=== PATIENT | male | born 1985 | race Caucasian/White ===

== ENCOUNTER 2025-03-08 16:16 | Emergency (ER) | payer BC, SELFPAY ==
[2025-03-08 16:19] VITALS: BP 161/96
[2025-03-08 16:45] VITALS: BP 141/83
[2025-03-08 16:47] LABS: Hematocrit 45.1 % (39.0-52.0); Hemoglobin 15.5 g/dL (13.0-18.0); Mean Corp Hgb Conc. 34.4 g/dL (33.0-37.0); Mean Corpuscular Volume 89.5 fL (80.0-94.0); Nucleated Red Blood Cells % 0 % (-); Platelet Count 238 10^3/uL (130-400); Red Cell Dist. Width 12.6 % (11.5-14.5)
[2025-03-08 16:48] VITALS: BP 141/83; BMI 25.8
--- NOTE | 2025-03-08 16:51 | ED.GENMED ---
History of Present Illness
General
Chief Complaint: Chest Pain
Source: patient
Exam Limitations: none
Time Seen by Provider: 03/08/25 16:50
Nursing documentation reviewed up to this point in time: agreed with
History of Present Illness
History of Present Illness:
40-year-old male with history of HTN presents for chest pain, dizziness, shortness of breath. States he worked out, then ate lunch at 12:45 (4 hours ago), 15 minutes later developed tightness in his left upper chest, non radiating, thought it was
indigestion, took TUMS, walked around for 2 hours and felt dizzy and short of breath while he was walking around. Indigestion has subsided, L upper chest pain improved from 7/10 to now 3/10. No longer feels dizzy or SOB. Denies nausea but states he
did sweal 'a little' while walking around.
Past History
Past History
ED Past Medical History: None; Negative Asthma, HTN, Hypercholesterolemia or NIDDM
ED Past Surgical History: None
Social History
Tobacco: Former smoker
Alcohol: Occasional
Personal:
Living: with family
Review of Systems
Review of Systems
Allergies reviewed?: Yes
All Other Systems: ROS reviewed and negative except as documented in HPI and ROS
Phy Exam
Physical Exam
Physical Exam:
GENERAL: No acute distress. A&Ox3.
CONSTITUTIONAL: Afebrile.
EYES: clear, conjunctivae normal
ENMT: moist mucus membranes, Pharynx nl
RESPIRATORY: Regular respirations, nonlabored, lungs clear.
CARDIOVASCULAR: Regular rate and rhythm, no murmurs, no rubs.
GI: Soft, nontender, normal BS
MUSCULOSKELETAL: Moves with ease. Well perfused.
SKIN: Warm, dry, pink
PSYCH: Normal mood and affect. Well kept, interactive and appropriate
NEUROLOGIC: Awake, alert and oriented. Speech clear. Cranial nerves II to XII intact. Strength equal throughout. [id number] intact. No focal neurological deficits
Scores
Heart Score for Chest Pain Patients
STEMI patient?: Not applicable
Course
Orders/Labs/Results
Orders:
Orders
03/08/25 16:17
ECG [Electrocardiogram (*1)] Urgent
Reason for Study: Chest Pain
EKG- Treatment ONCE
03/08/25 16:34
Complete Blood Count/With Diff Urgent
Comprehensive Metabolic Panel Urgent
Troponin I Urgent
03/08/25 17:02
CR Chest - 2 Views Urgent
Comment:
Reason For Exam: chest pain
03/08/25 18:15
Pantoprazole [Protonix IV] 80 mg IV NOW STA
03/08/25 19:19
Troponin I Urgent
03/08/25 19:24
Electrocardiogram (*1) Urgent
Reason for Study: Chest Pain
EKG- Treatment ONCE
Abnormal Lab Results
03/08/25
16:34
MPV 10.6 H fL
(7.4-10.4)
Absolute Neuts (auto) 6.8 H 10^3/uL
(1.4-6.5)
Absolute Monos (auto) 0.7 H 10^3/uL
(0.1-0.6)
Lymphocytes % 19.6 L %
(20.5-51.1)
Glucose 107 H mg/dl
(70-99)
Total Protein 8.7 H g/dl
(6.3-8.2)
Albumin 5.1 H g/dl
(3.5-5.0)
03/08/25 16:34
03/08/25 16:34
Vital Signs
Initial and Last Documented VS:
Initial Vital Signs
Temp Pulse Resp BP Pulse Ox
98.2 F 97 16 161/96 100
03/08/25 16:19 03/08/25 16:19 03/08/25 16:19 03/08/25 16:19 03/08/25 16:19
Last Documented Vital Signs
Temp Pulse Resp BP Pulse Ox
98.2 F 81 14 127/86 97
03/08/25 16:19 03/08/25 19:45 03/08/25 19:45 03/08/25 19:00 03/08/25 19:45
MDM/Problems Addressed
Differential Diagnosis Includes:
Angina, [place], musculoskeletal chest pain
CVA
MDM/Problems Addressed:
40-year-old male with history of HTN presents for chest pain, dizziness, shortness of breath. States he worked out, then ate lunch at 12:45 (4 hours ago), 15 minutes later developed tightness in his left upper chest, non radiating, thought it was
indigestion, took TUMS, walked around for 2 hours and felt dizzy and short of breath while he was walking around. Indigestion has subsided, L upper chest pain improved from 7/10 to now 3/10. No longer feels dizzy or SOB. Denies nausea but states he
did sweat 'a little' while walking around.
EKG: NSR
Normal neuro exam
CBC normal
CMP unremarkable
Troponin WNL
8:00 p .m.
EKG #2 unchanged
Troponin #2 WNL
Final diagnosis: Atypical Chest pain, GERD
Plan: Cardiac chest pain hotline, Protonix and GI f/u
*Pulse Oximetry
SaO2: 100
Oxygen Mode of Delivery: Room air
Patient hypoxic: no
*EKG
EKG Intrepretation Date: 03/08/25
Interpretation: normal
Heart Rate: 86
Rate: normal
Rhythm: sinus
[place]: normal axis
Interval: normal interval
QRS Pattern: normal QRS
*Critical Care Note
Total Time (30-74mins, 75-104mins- exclusive of procedures): Not Applicable
ED Attending Note
-
Portions of this chart may have been created with voice recognition software.� Occasional wrong word or��sound alike� substitutions may have occurred due to the inherent limitations of voice recognition software.
Discharge Plan
Departure
Patient Disposition: Home (Routine Discharge)
Date of Disposition: 03/08/25
Time of Disposition: 19:58
Patient with high blood pressure during this ER visit?: No
Condition: Good
Discharge Problem:
Atypical chest pain, GERD (gastroesophageal reflux disease)
Instructions: Acid Reflux and GERD in Adults (DC), Chest Pain DCA Follow Up
Prescriptions:
New
pantoprazole 40 mg tablet,delayed release (DR/EC)
40 mg PO DAILY Qty: 30 0RF
Referrals:
Edie Gates MD [Family Provider, Internal Medicine]
Arpit Rivera MD [Active, Gastroenterology] - Next open appointment
Activity Restrictions/Additional Instructions:
As we discussed, your workup here today shows nothing worrisome, specifically no indication of a heart attack.
I sent a prescription to your pharmacy for Protonix (Pantoprazole) to take daily for 2 weeks for reflux. Let the GI doctor know if it helps
I gave you contact information for GI doctor to follow up for reflux
Someone from the Cardiology group will call within the next 2-3 days for appointment for a more thorough cardiac evaluation.
Interventions
Interventions:
*Risk Screen - Suicide Last Done: 03/08/25 16:19
*General Assessment Last Done: 03/08/25 16:52
*Neglect/Abuse Screening Last Done: 03/08/25 16:19
*ED- Fall Risk Assessment Last Done: 03/08/25 16:19
*ED COVID-19 Vaccine History Last Done: 03/08/25 16:52
*Nursing Disposition Last Done: 03/08/25 21:06
ED- Cardiac Assessment Last Done: 03/08/25 16:54
Discharge Date and Time
Discharge Date/Time: 03/08/25 21:07
Print Language: DANISH
[2025-03-08 17:00] VITALS: BP 141/93
[2025-03-08 17:00] LABS: ALT (SGPT) 31 U/L (0-50); AST (SGOT) 33 U/L (17-59); Albumin 5.1 g/dl (3.5-5.0); Alkaline Phosphatase 63 U/L (38-126); Blood Urea Nitrogen 18 mg/dl (9-20); Calcium 10.1 mg/dl (8.4-10.2); Carbon Dioxide 27 mmol/L (22-30); Chloride 100 mmol/L (98-107); Estimated Creatinine Clearance 78 ml/min; Glucose 107 mg/dl (70-99); Potassium 4.4 mmol/L (3.5-5.1); Sodium 136 mmol/L (135-145); Total Protein 8.7 g/dl (6.3-8.2); eGFR > 60.00
[2025-03-08 17:11] LABS: Troponin I < 0.012 ng/ml
[2025-03-08 18:00] VITALS: BP 126/89
[2025-03-08] MEDS: PROTONIX IV 80 MG IV (18:51)
[2025-03-08 19:00] VITALS: BP 127/86
[2025-03-08 19:57] LABS: Troponin I < 0.012 ng/ml
== END 2025-03-08 21:07 | disposition home or self-care (01) ==
LOC: EMR 16:16
PROVIDERS: Emergency Medicine; Registered Nurse; EMERGENCY PHYSICIAN Emergency Medicine; FAMILY PHYSICIAN Internal Medicine
DX: R07.89 Other chest pain (principal); K21.9 Gastro-esophageal reflux disease without esophagitis; I10 Essential (primary) hypertension; Z87.891 Personal history of nicotine dependence
CPT/HCPCS: 99284; 96374; 71046; 80053; 84484; 85025; 93005